=== PATIENT | male | born 1950 | race Caucasian/White ===

== ENCOUNTER 2016-06-30 07:05 | Outpatient (CLI) | payer BC ==
[2016-06-30 12:06] LABS: BASOPHILS % (AUTO) 0.6 %; EOSINOPHILS # (AUTO) 0.4 10^3/uL (0.0-0.7); EOSINOPHILS % (AUTO) 4.9 %; HCT - HEMATOCRIT 42.5 % (42.0-52.0); HGB - HEMOGLOBIN 14.9 g/dL (14.0-18.0); LYMPHOCYTES # (AUTO) 1.5 10^3/uL (1.5-3.5); LYMPHOCYTES % (AUTO) 20.7 %; MEAN CORPUSCULAR HEMOGLOBIN 31.1 pg (27.0-31.0); MEAN CORPUSCULAR VOLUME 88.9 fL (80.0-94.0); MEAN PLATELET VOLUME 8.2 fL (7.4-11.4); MONOCYTES # (AUTO) 0.7 10^3/uL (0.0-1.0); MONOCYTES % (AUTO) 10.1 %; NEUTROPHILS # (AUTO) 4.5 10^3/uL (1.5-6.6); NEUTROPHILS % (AUTO) 63.7 %; NUCLEATED RED BLOOD CELLS AUTO 0.1 /100WBC; RED BLOOD COUNT 4.78 10^6/uL (4.70-6.10); UNCORRECTED WHITE BLOOD COUNT 7.1 x10^3/uL; WHITE BLOOD COUNT 7.1 x10^3/uL (4.8-10.8)
[2016-06-30 12:40] LABS: HEMOGLOBIN A1C 0.78 g/dL
[2016-06-30 12:44] LABS: ALBUMIN/GLOBULIN RATIO 1.1 (1.0-2.2); BILIRUBIN,TOTAL 1.1 mg/dL (0.2-1.0); BUN - BLOOD UREA NITROGEN 22 mg/dL (6-20); CALCIUM 8.9 mg/dL (8.5-10.3); CARBON DIOXIDE - CO2 26 mmol/L (21-32); CHLORIDE 102 mmol/L (101-111); CHOL/HDL RATIO 4.3 (<5.0); CHOLESTEROL 149 mg/dL; CREATININE 1.1 mg/dL (0.6-1.2); GFR - MDRD 68 (>89); GLUCOSE 143 mg/dL (70-100); HDL CHOLESTEROL 35 mg/dL; LDL/HDL RATIO 1.6 (<3.6); POTASSIUM 3.7 mmol/L (3.5-5.0); SODIUM 138 mmol/L (135-145); TOTAL PROTEIN 6.6 g/dL (6.7-8.2); TRIGLYCERIDES 284 mg/dL; VLDL CHOLESTEROL 57 mg/dL
== END 2016-06-30 07:06 | disposition home or self-care (01) ==
LOC: LAB.F 07:05
PROVIDERS: ATTEND Nurse Practitioner Primary Care
DX: E11.9 Type 2 diabetes mellitus without complications (principal); I10 Essential (primary) hypertension; E78.2 Mixed hyperlipidemia; Z79.899 Other long term (current) drug therapy
CPT/HCPCS: 36415; 80053; 80061; 82043; 82570; 83036; 84443; 85025

== ENCOUNTER 2017-07-27 07:09 | Outpatient (CLI) | payer OTHER ==
[2017-07-27 10:24] LABS: BASOPHILS % (AUTO) 0.5 %; EOSINOPHILS # (AUTO) 0.4 10^3/uL (0.0-0.7); EOSINOPHILS % (AUTO) 4.8 %; HGB - HEMOGLOBIN 14.6 g/dL (14.0-18.0); LYMPHOCYTES # (AUTO) 1.4 10^3/uL (1.5-3.5); LYMPHOCYTES % (AUTO) 17.4 %; MEAN CORPUSCULAR HEMOGLOBIN 30.8 pg (27.0-31.0); MEAN CORPUSCULAR HGB CONC 33.5 g/dL (32.0-36.0); MEAN CORPUSCULAR VOLUME 91.7 fL (80.0-94.0); MEAN PLATELET VOLUME 7.7 fL (7.4-11.4); MONOCYTES # (AUTO) 0.8 10^3/uL (0.0-1.0); MONOCYTES % (AUTO) 9.9 %; NEUTROPHILS # (AUTO) 5.3 10^3/uL (1.5-6.6); NEUTROPHILS % (AUTO) 67.4 %; PLT - PLATELET COUNT 306 10^3/uL (130-450); RED BLOOD COUNT 4.76 10^6/uL (4.70-6.10); RED CELL DISTRIBUTION WIDTH 13.1 % (12.0-15.0); WHITE BLOOD COUNT 7.8 x10^3/uL (4.8-10.8)
[2017-07-27 10:55] LABS: HB2 TOTAL 16.4 g/dL; HEMOGLOBIN A1C 0.8 g/dL; HEMOGLOBIN A1C % 6.6 % (4.6-6.2)
[2017-07-27 11:06] LABS: ALBUMIN 3.7 g/dL (3.2-5.5); ALBUMIN/GLOBULIN RATIO 1.2 (1.0-2.2); ALKALINE PHOSPHATASE 84 IU/L (42-121); ALT ALANINE AMINOTRANSFERASE 23 IU/L (10-60); AST ASPARTATE AMINOTRANSFERASE 24 IU/L (10-42); BILIRUBIN,TOTAL 1.8 mg/dL (0.2-1.0); BUN - BLOOD UREA NITROGEN 18 mg/dL (6-20); CALCIUM 8.6 mg/dL (8.5-10.3); CARBON DIOXIDE - CO2 27 mmol/L (21-32); CHLORIDE 100 mmol/L (101-111); CHOLESTEROL 141 mg/dL; CREATININE 1.2 mg/dL (0.6-1.2); GFR - MDRD 61 (>89); GLUCOSE 146 mg/dL (70-100); HDL CHOLESTEROL 35 mg/dL; LDL CHOLESTEROL,CALCULATED 58 mg/dL; LDL/HDL RATIO 1.7 (<3.6); SODIUM 135 mmol/L (135-145); TOTAL PROTEIN 6.9 g/dL (6.7-8.2); VLDL CHOLESTEROL 48 mg/dL
== END 2017-07-27 07:10 | disposition home or self-care (01) ==
LOC: LAB.F 07:09
PROVIDERS: ATTEND Nurse Practitioner Primary Care
DX: E11.9 Type 2 diabetes mellitus without complications (principal); Z72.89 Other problems related to lifestyle; I10 Essential (primary) hypertension; G60.9 Hereditary and idiopathic neuropathy, unspecified; Z79.899 Other long term (current) drug therapy; E78.5 Hyperlipidemia, unspecified
CPT/HCPCS: 36415; 80053; 80061; 83036; 83721; 85025

== ENCOUNTER 2019-05-13 09:38 | Outpatient (CLI) | payer MEDICARE, OTHER ==
[2019-05-13] MEDS ORDERED: IOVERSOL 320 50 ML VIAL ONE (09:57)
[2019-05-13] MEDS ORDERED: IOVERSOL 320 100 ML VIAL IVP ONE ×2 (09:57→11:24)
[2019-05-13] MEDS ORDERED: IOVERSOL 320 50 ML VIAL PO ONE (11:24)
--- NOTE | 2019-05-14 01:52 | CT Report ---
Reason: RLQ ABD PAIN Procedure Date: 05/13/2019 Accession Number: [id number] / [id number] Procedure: CT - Abdomen/Pelvis W CPT Code: Final Report FULL RESULT: EXAM: CT ABDOMEN AND PELVIS EXAM DATE: 05/13/2019 11:22 AM. CLINICAL HISTORY: RLQ ABD PAIN. COMPARISONS: None. TECHNIQUE: Routine helical CT imaging was performed through the abdomen and pelvis. IV contrast: OPTIRAY 320, 100 cc. Enteric contrast: Yes. Reconstructions: Coronal and sagittal. In accordance with CT protocol optimization, one or more of the following dose reduction techniques were utilized for this exam: automated exposure control, adjustment of mA and/or KV based on patient size, or use of iterative reconstructive technique. FINDINGS: Lung Bases: Ovoid right middle lobe nodular focus measuring 14 x 10 mm, series 3 image 2. Liver: No focal lesion identified. Gallbladder/Bile Ducts: Calcified stone at the gallbladder neck. No obvious cholecystitis. Spleen: Normal. Pancreas: Normal. Adrenal Glands: Normal. Kidneys: Bilateral renal cyst measuring 2.0 cm on the right and 2.5 cm on the left. No imaging follow-up is recommended per consensus recommendations based on imaging criteria. The kidneys are otherwise unremarkable. Peritoneal Cavity/Bowel: No bowel obstruction seen. No free air or free fluid. No diverticulitis. Focal wall thickening in the ascending colon, for example series 3 image 40, which could represent malignancy. There are some adjacent lymph nodes in the pericolonic fat measuring up to 1.4 x 1.0 cm. Appendix appears normal. Pelvic Organs: Normal. The bladder and visualized pelvic organs are within normal limits. Vasculature: Mild atherosclerosis. No aortic aneurysm. Bones: No aggressive lytic or blastic osseous lesions identified. Other: None. IMPRESSION: 1. Focal wall thickening in the ascending colon which may represent colon cancer. There are some adjacent lymph nodes in the pericolonic fat measuring up to 1.4 x 1.0 cm which may be involved. 2. Ovoid right middle lobe nodule measuring 14 x 10 mm, of uncertain significance in the setting of possible primary colon cancer. Consider PET CT or tissue sampling for further evaluation. 3. Calcified stone in the gallbladder. No cholecystitis seen. 4. Appendix appears normal. RADIA
== END 2019-05-13 09:39 | disposition home or self-care (01) ==
LOC: DI 09:38
PROVIDERS: ATTEND Nurse Practitioner Family
DX: K63.9 Disease of intestine, unspecified (principal); R91.1 Solitary pulmonary nodule; K80.20 Calculus of gallbladder without cholecystitis without obstruction
CPT/HCPCS: 74177; Q9967

== ENCOUNTER 2019-11-13 00:35 | Emergency (ER) | payer MEDICARE, OTHER ==
--- NOTE | 2019-11-13 00:38 | ED Physician Documentation ---
History of Present Illness - Stated complaint Stated Complaint: SOA/TONGUE SWELLING - History obtained from History obtained from: Patient - Additonal information Additional information: Patient is a 68-year-old male who presents with tongue swelling. Patient denies any distress. He denies any history of previous similar episodes he does take lisinopril. He is also currently on chemotherapy for colon cancer denies any difficulty breathing or swelling in the throat. Review of Systems Constitutional: reports: Reviewed and negative Eyes: reports: Reviewed and negative Ears: reports: Reviewed and negative Nose: reports: Reviewed and negative Throat: reports: Other (Tongue swelling) Cardiac: reports: Reviewed and negative Respiratory: reports: Reviewed and negative GI: reports: Reviewed and negative : reports: Reviewed and negative Skin: reports: Reviewed and negative Musculoskeletal: reports: Reviewed and negative Neurologic: reports: Reviewed and negative Psychiatric: reports: Reviewed and negative Endocrine: reports: Reviewed and negative Immunocompromised: reports: Reviewed and negative PD PAST MEDICAL HISTORY - Past Medical History Cardiovascular: Hypertension, High cholesterol Respiratory: Sleep apnea, CPAP use Endocrine/Autoimmune: Type 2 diabetes - Past Surgical History Ortho: Rotator cuff repair, Other - Present Medications Home Medications: Ambulatory Orders Medication Instructions Recorded Confirmed Amlodipine Besylate 10 mg PO DAILY 06/12/15 10/02/15 Aspirin [Aspir-Low] 81 mg PO DAILY 06/12/15 10/02/15 Atorvastatin Calcium 40 mg PO DAILY 06/12/15 10/02/15 Lisinopril/Hydrochlorothiazide 2 each PO DAILY 06/12/15 10/02/15 [Lisinopril-Hctz 20-12.5 mg Tab] Metoprolol Succinate 100 mg PO DAILY 06/12/15 10/02/15 Multivitamin [Multivitamins] 1 each PO DAILY 06/12/15 10/02/15 metFORMIN [Glucophage] 500 mg PO BIDWM 06/12/15 10/02/15 EPINEPHrine [Epinephrine] 0.3 mg IJ ONCE PRN #1 auto.injct 11/13/19 - Allergies Allergies/Adverse Reactions: Allergies Allergy/AdvReac Type Severity Reaction Status Date / Time No Known Drug Allergies Allergy Verified 06/12/15 16:26 - Social History Smoking Status: Former smoker PD ED PE NORMAL - Vitals Vital signs reviewed: Yes - General General: Alert and oriented X 3, No acute distress, Well developed/nourished - HEENT HEENT: Atraumatic, PERRL, EOMI, Ears normal, Moist mucous membranes, Pharynx benign, Dentition benign, Other (Mild swelling of the left side of the tongue, able to visualize the posterior oropharynx, uvula is midline no difficulty swallowing or speaking no drooling tolerating his secretions. Trachea midline) - Neck Neck: Supple, no meningeal sign, No JVD, No bruit - Cardiac Cardiac: RRR, No murmur, Strong equal pulses - Respiratory Respiratory: No respiratory distress, Clear bilaterally - Abdomen Abdomen: Normal bowel sounds, Soft, Non tender, Non distended - Back Back: No CVA TTP, No spinal TTP - Derm Derm: Normal color, Warm and dry, No rash - Extremities Extremities: No deformity, No tenderness to palpate, Normal ROM s pain, No edema, No calf tenderness / cord - Neuro Neuro: Alert and oriented X 3, nut cracker 2-12 intact, No motor deficit, No sensory deficit, Normal speech - Psych Psych: Normal mood, Normal affect Results - Vitals Vitals: Vital Signs - 24 hr 11/13/19 00:43 Temperature 36.8 C Heart Rate 63 Respiratory 14 Rate Blood Pressure 126/90 H O2 Saturation 94 Oxygen O2 Source Room air - Labs Labs: Laboratory Tests 11/13/19 11/13/19 11/13/19 00:46 00:46 00:46 WBC 10.0 RBC 3.34 L Hgb 10.8 L Hct 30.9 L MCV 92.5 MCH 32.3 H MCHC 35.0 RDW 23.4 H Plt Count 196 MPV 8.3 Neut # (Auto) 7.2 H Lymph # (Auto) 1.3 L [place] # (Auto) 1.3 H Eos # (Auto) 0.2 Baso # (Auto) 0.0 Absolute Nucleated RBC 0.00 Nucleated RBC % 0.0 Manual Slide Review Indicated Platelet Estimate NORMAL (130-450,000) Platelet Morphology NORMAL APPEARANCE RBC Morph Micro Appear 1+ MACROCYTOSIS PT 13.2 H INR 1.2 APTT 24.3 L Sodium 136 Potassium 3.2 L Chloride 99 L Carbon Dioxide 23 Anion Gap 14.0 H BUN 21 H Creatinine 1.3 H Estimated GFR (MDRD) 55 L Glucose 153 H Calcium 8.7 Total Bilirubin 3.0 H AST 24 ALT 14 Alkaline Phosphatase 80 Total Protein 6.6 L Albumin 3.4 Globulin 3.2 Albumin/Globulin Ratio 1.1 Lipase 117 H PD MEDICAL DECISION MAKING - ED course Complexity details: reviewed old records, reviewed results, re-evaluated patient (01:49 angioedema of tongue improving. will dc home with close follow up. discontinue lisinopril. f/u w oncologist today.), considered differential, d/w patient, d/w family ED course: 68-year-old male on lisinopril presents with spontaneous mild angioedema to the tongue. He was monitored for over an hour here treated with Benadryl Pepcid and Solu-Medrol the swelling has decreased significantly he has normal voice tolerating secretions patient would like to be discharged home I did offer to admit him for observation however he and his would like to go home they w ill follow-up with her oncologist today at [facility]. I did provide a prescription for an EpiPen as well as recommend that he discontinue lisinopril. Departure - Departure Disposition: 01 Home, Self Care Clinical Impression: Angioedema Qualifiers: Encounter type: initial encounter Qualified Code(s): T78.3XXA - Angioneurotic edema, initial encounter Condition: Stable Instructions: ED Angioedema Follow-Up: Enzo Mendes MD [Primary Care Provider] - 11/13/19 Prescriptions: EPINEPHrine [Epinephrine] 0.3 mg IJ ONCE PRN #1 auto.injct PRN Reason: Anaphylaxis Comments: discontinue lisinopril until evaluated by your pcp or your oncologist.
[2019-11-13] MEDS ORDERED: FAMOTIDINE 20 MG/2 ML SYRINGE IVP STA (00:46)
[2019-11-13] MEDS ORDERED: diphenhydrAMINE INJ 50 MG/ML VIAL IVP STA (00:46)
[2019-11-13] MEDS ORDERED: methylPREDNISolone SUCCINATE 125 MG/2 ML VIAL IVP STA (00:46)
[2019-11-13 00:56] LABS: BASOPHILS % (AUTO) 0.2 %; EOSINOPHILS # (AUTO) 0.2 10^3/uL (0.0-0.7); HGB - HEMOGLOBIN 10.8 g/dL (14.0-18.0); LYMPHOCYTES # (AUTO) 1.3 10^3/uL (1.5-3.5); LYMPHOCYTES % (AUTO) 13.1 %; MEAN CORPUSCULAR HEMOGLOBIN 32.3 pg (27.0-31.0); MEAN CORPUSCULAR VOLUME 92.5 fL (80.0-94.0); MEAN PLATELET VOLUME 8.3 fL (7.4-11.4); MONOCYTES # (AUTO) 1.3 10^3/uL (0.0-1.0); MONOCYTES % (AUTO) 12.9 %; NEUTROPHILS # (AUTO) 7.2 10^3/uL (1.5-6.6); NEUTROPHILS % (AUTO) 71.4 %; PLT - PLATELET COUNT 196 10^3/uL (130-450); RED BLOOD COUNT 3.34 10^6/uL (4.70-6.10); RED CELL DISTRIBUTION WIDTH 23.4 % (12.0-15.0)
[2019-11-13 01:01] LABS: INR 1.2 (0.8-1.2); PT - PROTHROMBIN TIME 13.2 secs (9.9-12.6)
[2019-11-13 01:08] LABS: ALBUMIN 3.4 g/dL (3.2-5.5); ALBUMIN/GLOBULIN RATIO 1.1 (1.0-2.2); CALCIUM 8.7 mg/dL (8.5-10.3); CREATININE 1.3 mg/dL (0.6-1.2); PARTIAL THROMBOPLASTIN TIME 24.3 secs (24.9-33.3); TOTAL PROTEIN 6.6 g/dL (6.7-8.2)
[2019-11-13 01:18] LABS: PLATELET ESTIMATE, MANUAL NORMAL (130-450,000) (NORMAL); PLATELET MORPHOLOGY NORMAL APPEARANCE (NORMAL)
[2019-11-13 02:14] VITALS: BP 119/63
== END 2019-11-13 02:14 | disposition home or self-care (01) ==
LOC: ED 00:35
DX: T78.3XXA Angioneurotic edema, initial encounter (principal); X58.XXXA Exposure to other specified factors, initial encounter; C18.9 Malignant neoplasm of colon, unspecified; I10 Essential (primary) hypertension; E11.9 Type 2 diabetes mellitus without complications; Z79.84 Long term (current) use of oral hypoglycemic drugs; Z79.82 Long term (current) use of aspirin; Z87.891 Personal history of nicotine dependence
CPT/HCPCS: 36415; 80053; 83690; 85025; 85610; 85730; 96374; 99283; 99284; J1200

== ENCOUNTER 2021-10-18 01:30 | Emergency (ER) | payer MEDICARE, OTHER ==
--- NOTE | 2021-10-18 01:47 | ED Physician Documentation ---
History of Present Illness - Stated complaint Stated Complaint: HIGH BP - Chief complaint Chief Complaint: Cardiac - History obtained from History obtained from: Patient - Additonal information Additional information: Patient presenting for evaluation of headache and elevated blood pressure. He does have a history of hypertension and is on metoprolol and amlodipine. The amlodipine is a new medication which was just started on Tuesday. He reports being compliant with his medication most days and has stated he occasionally misses a dose of metoprolol. He has taken his medications this weekend. He woke up at midnight with a bitemporal headache that is throbbing and checked his blood pressure with readings above 200s systolic. He denies visual disturbances. He does not use a blood thinner. He has associated nausea. He denies chest pain. He does report feeling some shortness of breath. He denies cough, congestion, abdominal pain, vomiting or diarrhea. He denies extremity weakness. Review of Systems Constitutional: denies: Fever Nose: denies: Congestion Throat: denies: Sore throat Cardiac: denies: Chest pain / pressure Respiratory: denies: Cough GI: reports: Nausea. denies: Abdominal Pain, Vomiting : denies: Dysuria Musculoskeletal: reports: Back pain Neurologic: reports: Headache PD PAST MEDICAL HISTORY - Past Medical History Cardiovascular: Hypertension, High cholesterol Respiratory: Sleep apnea, CPAP use Endocrine/Autoimmune: Type 2 diabetes - Past Surgical History Ortho: Rotator cuff repair, Other - Present Medications Home Medications: Ambulatory Orders Medication Instructions Recorded Confirmed Amlodipine Besylate 10 mg PO DAILY 06/12/15 10/18/21 Aspirin [Aspir-Low] 81 mg PO DAILY 06/12/15 10/18/21 Atorvastatin Calcium 40 mg PO DAILY 06/12/15 10/18/21 Metoprolol Succinate 100 mg PO DAILY 06/12/15 10/18/21 Multivitamin [Multivitamins] 1 each PO DAILY 06/12/15 10/18/21 metFORMIN [Glucophage] 500 mg PO BIDWM 06/12/15 10/18/21 - Allergies Allergies/Adverse Reactions: Allergies Allergy/AdvReac Type Severity Reaction Status Date / Time lisinopril Allergy Edema Verified 10/18/21 01:39 - Social History Smoking Status: Former smoker PD ED PE NORMAL - General General: Alert and oriented X 3, No acute distress, Well developed/nourished - HEENT HEENT: Atraumatic, PERRL, EOMI, Moist mucous membranes - Neck Neck: Supple, no meningeal sign - Cardiac Cardiac: No murmur, Other (Bradycardia, normal rhythm) - Respiratory Respiratory: No respiratory distress, Clear bilaterally - Abdomen Abdomen: Normal bowel sounds, Soft, Non tender, Non distended - Derm Derm: Warm and dry - Extremities Extremities: No edema, No calf tenderness / cord - Neuro Neuro: Alert and oriented X 3, customs compliance specialist 2-12 intact, No motor deficit, No sensory deficit, Normal speech Results - Vitals Vitals: Vital Signs - 24 hr 10/18/21 10/18/21 10/18/21 01:34 02:30 03:55 Temperature 36.4 C L Heart Rate 53 L 50 L 49 L Respiratory 19 16 14 Rate Blood Pressure 205/96 H 182/80 H 161/74 H O2 Saturation 95 95 95 10/18/21 10/18/21 04:45 05:50 Temperature 36.2 C L 36.3 C L Heart Rate 59 L 57 L Respiratory 20 17 Rate Blood Pressure 183/86 H 175/74 H O2 Saturation 94 97 Oxygen O2 Source Room air - EKG (time done) 0200 Rate: Rate (enter#) (49) Rhythm: Sinus bradycardia Intervals: No: Prolonged QT Ischemia: No: ST elevation c/w ischemia, ST depression - Labs Labs: Laboratory Tests 10/18/21 10/18/21 10/18/21 02:18 02:18 02:18 WBC 9.0 RBC 5.15 Hgb 16.5 Hct 48.0 MCV 93.2 MCH 32.0 H MCHC 34.4 RDW 12.4 Plt Count 240 MPV 8.9 Neut # (Auto) 7.2 H Lymph # (Auto) 1.0 L [place] # (Auto) 0.6 Eos # (Auto) 0.2 Baso # (Auto) 0.0 Absolute Nucleated RBC 0.00 Nucleated RBC % 0.0 Sodium 135 Potassium 3.7 Chloride 97 L Carbon Dioxide 25 Anion Gap 13.0 BUN 15 Creatinine 1.1 Estimated GFR (MDRD) 67 L Glucose 163 H Calcium 9.0 Total Bilirubin 2.0 H AST 22 ALT 29 Alkaline Phosphatase 95 B-Natriuretic Peptide 63 Total Protein 7.7 Albumin 4.2 Globulin 3.5 Albumin/Globulin Ratio 1.2 PD MEDICAL DECISION MAKING - ED course Complexity details: reviewed results, re-evaluated patient, d/w patient, d/w family ED course: Pt with headache and elevated blood pressure readings. Normal neuro. CT brain neg for bleed. Blood pressure was adequately reduced with a small dose of hydralazine and headache also improved. Patient has no signs of endorgan damage. He is feeling much better. He understands need for compliance with his medication and follow-up with his PCP. 0527 -Feeling better. Blood pressure has improved. Headache has significantly improved. Reviewed labs and imaging results. Patient is comfortable plan for discharge. Departure - Departure Disposition: Home, Self Care Clinical Impression: Uncontrolled hypertension, Tension headache Condition: Stable Instructions: ED Cephalgia Unspecified, ED Hypertension Conf Out Of Control Follow-Up: JACQUELINE LUNDBERG MD [Primary Care Provider] - Comments: Please continue taking your blood pressure medication as prescribed.It is important to not miss any doses. If you have any worsening symptoms please return to the ER. Otherwise please call your primary care doctor on Tuesday for close outpatient follow-up. Discharge Date/Time: 10/18/21 05:55
[2021-10-18 02:23] LABS: BASOPHILS % (AUTO) 0.3 %; EOSINOPHILS # (AUTO) 0.2 10^3/uL (0.0-0.7); HGB - HEMOGLOBIN 16.5 g/dL (14.0-18.0); LYMPHOCYTES % (AUTO) 10.9 %; MEAN CORPUSCULAR HGB CONC 34.4 g/dL (32.0-36.0); MEAN CORPUSCULAR VOLUME 93.2 fL (80.0-94.0); MEAN PLATELET VOLUME 8.9 fL (7.4-11.4); MONOCYTES # (AUTO) 0.6 10^3/uL (0.0-1.0); MONOCYTES % (AUTO) 7.1 %; NEUTROPHILS # (AUTO) 7.2 10^3/uL (1.5-6.6); NEUTROPHILS % (AUTO) 79.4 %; PLT - PLATELET COUNT 240 10^3/uL (130-450); RED BLOOD COUNT 5.15 10^6/uL (4.70-6.10); RED CELL DISTRIBUTION WIDTH 12.4 % (12.0-15.0)
[2021-10-18 02:36] LABS: ALBUMIN 4.2 g/dL (3.2-5.5); ALBUMIN/GLOBULIN RATIO 1.2 (1.0-2.2); CREATININE 1.1 mg/dL (0.6-1.2); POTASSIUM 3.7 mmol/L (3.5-5.0); TOTAL PROTEIN 7.7 g/dL (6.7-8.2)
[2021-10-18] MEDS: hydrALAZINE INJ 20 MG/ML VIAL IVP STA (02:53)
[2021-10-18] MEDS: ONDANSETRON 4 MG/2 ML VIAL IVP STA (02:53)
[2021-10-18] MEDS: diphenhydrAMINE INJ 50 MG/ML VIAL IVP STA (04:03)
[2021-10-18] MEDS: METOCLOPRAMIDE 10 MG/2 ML VIAL IVP STA (04:03)
[2021-10-18] MEDS: SODIUM CHLORIDE 0.9% 500 ML IV STA (04:03)
[2021-10-18] MEDS: KETOROLAC 15 MG/ML VIAL IVP STA (04:03)
[2021-10-18 06:14] VITALS: BP 175/74
--- NOTE | 2021-10-18 09:20 | XRAY Report ---
PROCEDURE: Chest 1 View X-Ray INDICATIONS: SOA TECHNIQUE: One view of the chest was acquired. COMPARISON: None. FINDINGS: Surgical changes and devices: None. Lungs and pleura: No pleural effusions or pneumothorax. Lungs are clear. Mediastinum: Mediastinal contours appear normal. Heart size is normal. Bones and chest wall: No suspicious bony lesions. Overlying soft tissues appear unremarkable. IMPRESSION: No acute cardiopulmonary abnormality. There is no significant discrepancy when compared with the preliminary overnight report. Reviewed by: Adonay Celaya MD on 10/18/2021 8:19 AM RAYMUNDO Approved by: Adonay Celaya MD on 10/18/2021 8:19 AM RAYMUNDO Station ID: [id number]
--- NOTE | 2021-10-18 09:22 | CT Report ---
PROCEDURE: HEAD WO INDICATIONS: headache/HTN TECHNIQUE: Noncontrast 4.5 mm thick angled axial sections acquired from the foramen magnum to the vertex. For r adiation dose reduction, the following was used: automated exposure control, adjustment of mA and/or kV according to patient size. COMPARISON: None. FINDINGS: Image quality: Excellent. CSF spaces: Basal cisterns are patent. No extra-axial fluid collections. Ventricles are symmetric in size and shape. Brain: No midline shift. No intracranial masses or hemorrhage. Barr-white matter interface is norm al. Skull and face: Calvarium and visualized facial bones are intact, without suspicious lesions. Sinuses: Possible mucosal retention cyst or polyp is partially imaged in the right maxillary sinus. The paranasal sinuses and the mastoid air cells are otherwise clear. IMPRESSION: No acute intracranial abnormality. There is no significant discrepancy when compared with the preliminary overnight report. Reviewed by: Adonay Celaya MD on 10/18/2021 8:21 AM RAYMUNDO Approved by: Adonay Celaya MD on 10/18/2021 8:21 AM MODANIELA Station ID: [id number]
== END 2021-10-18 05:55 | disposition home or self-care (01) ==
LOC: ED 01:30
DX: G44.209 Tension-type headache, unspecified, not intractable (principal); I10 Essential (primary) hypertension; E11.9 Type 2 diabetes mellitus without complications; Z79.84 Long term (current) use of oral hypoglycemic drugs
CPT/HCPCS: 36415; 70450; 71045; 80053; 83880; 85025; 93005; 96374; 96375; 99284; J1200; J2765

== ENCOUNTER 2022-08-17 12:58 | Outpatient (CLI) | payer MEDICARE, OTHER ==
[2022-08-17 13:28] LABS: ALBUMIN 3.8 g/dL (3.2-5.5); ALBUMIN/GLOBULIN RATIO 1.3 (1.0-2.2); BILIRUBIN,TOTAL 1.9 mg/dL (0.2-1.0); CALCIUM 8.7 mg/dL (8.5-10.3); CREATININE 1.4 mg/dL (0.6-1.2); TOTAL PROTEIN 6.8 g/dL (6.7-8.2)
== END 2022-08-17 12:59 | disposition home or self-care (01) ==
LOC: LAB 12:58
PROVIDERS: ATTEND Nurse Practitioner Adult Health
DX: I10 Essential (primary) hypertension (principal); R19.7 Diarrhea, unspecified; R53.83 Other fatigue
CPT/HCPCS: 36415; 80053

== ENCOUNTER 2022-09-13 13:15 | Outpatient (CLI) | payer MEDICARE, OTHER ==
[2022-09-13 21:26] LABS: THYROID STIMULATING HORMONE 2.29 uIU/mL (0.34-5.60)
== END 2022-09-13 13:16 | disposition home or self-care (01) ==
LOC: LAB.S 13:15
PROVIDERS: ATTEND Nurse Practitioner Adult Health
DX: C18.9 Malignant neoplasm of colon, unspecified (principal); R53.83 Other fatigue
CPT/HCPCS: 36415; 84443

== ENCOUNTER 2022-12-27 08:48 | Outpatient (CLI) | payer MEDICARE, OTHER ==
[2022-12-27 14:49] LABS: ALBUMIN 4.1 g/dL (3.2-5.5); ALBUMIN/GLOBULIN RATIO 2.1 (1.0-2.2); BILIRUBIN,TOTAL 1.3 mg/dL (0.2-1.0); CALCIUM 8.7 mg/dL (8.5-10.3); CREATININE 1.5 mg/dL (0.6-1.3); POTASSIUM 4.3 mmol/L (3.5-4.5); TOTAL PROTEIN 6.1 g/dL (6.4-8.9)
== END 2022-12-27 08:49 | disposition home or self-care (01) ==
LOC: LAB.S 08:48
PROVIDERS: ATTEND Nurse Practitioner Adult Health
DX: N18.31 Chronic kidney disease, stage 3a (principal); I50.30 Unspecified diastolic (congestive) heart failure
CPT/HCPCS: 36415; 80053

== ENCOUNTER 2023-01-11 22:43 | Outpatient (CLI) | payer MEDICARE, OTHER | END 2023-01-11 22:44 | disposition EMS.NT | LOC: EMS 22:43 | DX: R11.2 Nausea with vomiting, unspecified (principal) ==

== ENCOUNTER 2023-05-08 08:00 | Outpatient (CLI) | payer MEDICARE, OTHER | END 2023-05-08 23:59 | disposition home or self-care (01) | LOC: PC 08:00 | PROVIDERS: ATTEND Nurse Practitioner Adult Health | DX: Z51.5 Encounter for palliative care (principal); C18.9 Malignant neoplasm of colon, unspecified | CPT/HCPCS: 99426 ==

== ENCOUNTER 2023-05-11 08:00 | Outpatient (CLI) | payer MEDICARE, OTHER | END 2023-05-11 23:59 | disposition home or self-care (01) | LOC: PC 08:00 | PROVIDERS: ATTEND Nurse Practitioner Adult Health | DX: Z51.5 Encounter for palliative care (principal); G62.0 Drug-induced polyneuropathy; T45.1X5A Adverse effect of antineoplastic and immunosuppressive drugs, initial encounter; R53.83 Other fatigue; I50.9 Heart failure, unspecified; C18.9 Malignant neoplasm of colon, unspecified; C78.7 Secondary malignant neoplasm of liver and intrahepatic bile duct; Z71.89 Other specified counseling; Z87.891 Personal history of nicotine dependence | CPT/HCPCS: 99215 ==

== ENCOUNTER 2023-05-18 07:05 | Outpatient (CLI) | payer MEDICARE, OTHER ==
[2023-05-18 14:51] LABS: BASOPHILS % (AUTO) 0.5 %; EOSINOPHILS # (AUTO) 0.3 10^3/uL (0.0-0.7); EOSINOPHILS % (AUTO) 3.9 %; HCT - HEMATOCRIT 45.2 % (42.0-52.0); HGB - HEMOGLOBIN 14.5 g/dL (14.0-18.0); LYMPHOCYTES # (AUTO) 1.1 10^3/uL (1.5-3.5); LYMPHOCYTES % (AUTO) 17.6 %; MEAN CORPUSCULAR HEMOGLOBIN 31.5 pg (27.0-31.0); MEAN CORPUSCULAR HGB CONC 32.1 g/dL (32.0-36.0); MEAN CORPUSCULAR VOLUME 98.3 fL (80.0-94.0); MEAN PLATELET VOLUME 9.9 fL (7.4-11.4); MONOCYTES # (AUTO) 0.7 10^3/uL (0.0-1.0); MONOCYTES % (AUTO) 10.6 %; NEUTROPHILS # (AUTO) 4.3 10^3/uL (1.5-6.6); NEUTROPHILS % (AUTO) 67.1 %; PLT - PLATELET COUNT 220 10^3/uL (130-450); RED CELL DISTRIBUTION WIDTH 12.9 % (12.0-15.0); WHITE BLOOD COUNT 6.4 x10^3/uL (4.8-10.8)
[2023-05-18 15:27] LABS: ALBUMIN 3.8 g/dL (3.2-5.5); ALBUMIN/GLOBULIN RATIO 1.4 (1.0-2.2); BILIRUBIN,TOTAL 1.6 mg/dL (0.2-1.0); CALCIUM 9.3 mg/dL (8.5-10.3); CREATININE 1.5 mg/dL (0.6-1.3); POTASSIUM 4.2 mmol/L (3.5-4.5); TOTAL PROTEIN 6.5 g/dL (6.4-8.9)
== END 2023-05-18 07:06 | disposition home or self-care (01) ==
LOC: LAB.S 07:05
PROVIDERS: ATTEND Internal Medicine Hematology & Oncology
DX: C18.2 Malignant neoplasm of ascending colon (principal)
CPT/HCPCS: 36415; 80053; 85025

== ENCOUNTER 2023-09-07 08:00 | Outpatient (CLI) | payer MEDICARE, OTHER | END 2023-09-07 23:59 | disposition home or self-care (01) | LOC: PC 08:00 | PROVIDERS: ATTEND Nurse Practitioner Adult Health | DX: Z51.5 Encounter for palliative care (principal); C18.9 Malignant neoplasm of colon, unspecified | CPT/HCPCS: 99426 ==

== ENCOUNTER 2023-09-15 08:00 | Outpatient (CLI) | payer MEDICARE, OTHER | END 2023-09-15 23:59 | disposition home or self-care (01) | LOC: PC 08:00 | PROVIDERS: ATTEND Nurse Practitioner Adult Health | DX: Z51.5 Encounter for palliative care (principal); G62.0 Drug-induced polyneuropathy; T45.1X5S Adverse effect of antineoplastic and immunosuppressive drugs, sequela; Z79.899 Other long term (current) drug therapy; C78.7 Secondary malignant neoplasm of liver and intrahepatic bile duct; C18.9 Malignant neoplasm of colon, unspecified; F32.A Depression, unspecified; I50.30 Unspecified diastolic (congestive) heart failure; M25.552 Pain in left hip; F10.90 Alcohol use, unspecified, uncomplicated; F12.90 Cannabis use, unspecified, uncomplicated; R53.1 Weakness; R26.81 Unsteadiness on feet; Z79.82 Long term (current) use of aspirin | CPT/HCPCS: 99350 ==